=== PATIENT | female | born 1990 | race American Indian/Alaskan Native ===

== ENCOUNTER 2022-01-11 04:04 | Emergency (ER) | payer SELFPAY ==
[2022-01-11] MEDS ORDERED: LIDOCAINE (1%) 10 MG/1 ML VIAL 20 ML MDV INFILTRATI ONE (05:20)
[2022-01-11 05:25] VITALS: BP 108/71
[2022-01-11] MEDS ORDERED: KETOROLAC 10 MG TAB PO ONE (05:52)
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
[2022-01-11] MEDS: TETANUS,DIPH,PERTUSS(ACELL) VACCINE 0.5 ML SYRINGE IM ONE ×2 (05:58→06:00)
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
== END 2022-01-11 06:47 ==
LOC: ED 04:04
DX: S61.411A Laceration without foreign body of right hand, initial encounter (principal); X58.XXXA Exposure to other specified factors, initial encounter; Y93.89 Activity, other specified; Y92.89 Other specified places as the place of occurrence of the external cause; Y99.8 Other external cause status
CPT/HCPCS: 12002; 73130; 99283; J3490; 90715